=== PATIENT | male | born 2000 | race African-American/Black ===

== ENCOUNTER 2021-05-21 14:04 | Emergency (ER) | payer MEDICAID ==
[~2021-05-21] VITALS: Ht 175.3 cm; Wt 66.0 kg
[2021-05-21 15:19] LABS: BASOPHILS % 0.6 % (0.0-2.0); EOSINOPHILS % 0.5 % (0.0-5.0); HEMATOCRIT. 43.2 % (42.0-52.0); HEMOGLOBIN. 14.2 g/dL (14.0-18.0); LYMPHOCYTES % 14.6 % (20.0-50.0); MEAN CORPUSCULAR HEMOGLOBIN 29.9 pg (28.0-32.0); MEAN PLATELET VOLUME 7.6 fl (7.4-10.4); MONOCYTES % 7.2 % (2.0-8.0); NEUTROPHILS % 77.1 % (40.0-76.0); PLATELET 231 x1000/uL (130-400); RED BLOOD CELL COUNT 4.75 mill/uL (4.7-6.1); RED CELL DISTRIBUTION WIDTH 14.2 % (11.6-14.6)
[2021-05-21 15:26] LABS: CHLORIDE 108 mEq/L (98-107)
[2021-05-21 15:30] LABS: ETHANOL BLOOD < 10 mg/dL
[2021-05-21 17:29] LABS: CLARITY URINE CLEAR (CLEAR); COLOR URINE YELLOW (YELLOW); KETONES URINE NEGATIVE (NEGATIVE); LEUKOCYTE ESTERASE URINE NEGATIVE (NEGATIVE); NITRITE URINE NEGATIVE (NEGATIVE); OCCULT BLOOD URINE NEGATIVE (NEGATIVE); PH URINE 6.5 (4.5-8.0); PROTEIN URINE NEGATIVE (NEGATIVE); SPECIFIC GRAVITY URINE 1.013 (1.005-1.030); UROBILINOGEN URINE 0.2 E.U./dL (0.2-1.0)
[2021-05-21 17:57] LABS: *BENZODIAZEPINES SCREEN URINE NEGATIVE (NEGATIVE); METHADONE URINE SCREEN NEGATIVE (NEGATIVE); OPIATES URINE SCREEN NEGATIVE (NEGATIVE); PHENCYCLIDINE URINE SCREEN NEGATIVE (NEGATIVE)
[2021-05-21 17:58] LABS: *AMPHETAMINES SCREEN URINE NEGATIVE (NEGATIVE); *BARBITURATES SCREEN URINE NEGATIVE (NEGATIVE); *COCAINE SCREEN URINE NEGATIVE (NEGATIVE); CANNABINOID URINE SCREEN NEGATIVE (NEGATIVE)
[2021-05-22] MEDS: RISPERIDONE 1MG TABLET PO SCH ×2 (09:32→21:13)
[2021-05-23 05:02] VITALS: BP 103/61
== END 2021-05-23 05:05 ==
LOC: ER 14:04
DX: U07.1 COVID-19 (principal); R45.851 Suicidal ideations; F12.90 Cannabis use, unspecified, uncomplicated; F15.90 Other stimulant use, unspecified, uncomplicated; Z91.14 Patient's other noncompliance with medication regimen; Z91.51 Personal history of suicidal behavior; Z59.00 Homelessness unspecified
CPT/HCPCS: 36415; 80053; 80305; 80307; 80320; 80329; 81003; 85025; 99285; G0480

== ENCOUNTER 2021-06-25 03:31 | Emergency (ER) | payer MEDICAID ==
[~2021-06-25] VITALS: Ht 175.3 cm; Wt 73.0 kg
[2021-06-25 03:52] VITALS: BP 120/78
[2021-06-25 04:46] LABS: BASOPHILS % 0.5 % (0.0-2.0); EOSINOPHILS % 3.3 % (0.0-5.0); HEMATOCRIT. 42.6 % (42.0-52.0); HEMOGLOBIN. 14.8 g/dL (14.0-18.0); LYMPHOCYTES % 14.2 % (20.0-50.0); MEAN CORPUSCULAR HEMOGLOBIN 30.6 pg (28.0-32.0); MEAN CORPUSCULAR VOLUME 88.1 fL (80.0-94.0); MEAN PLATELET VOLUME 7.3 fl (7.4-10.4); MONOCYTES % 10.5 % (2.0-8.0); NEUTROPHILS % 71.5 % (40.0-76.0); PLATELET 264 x1000/uL (130-400); RED BLOOD CELL COUNT 4.83 mill/uL (4.7-6.1); RED CELL DISTRIBUTION WIDTH 13.4 % (11.6-14.6)
[2021-06-25 04:52] LABS: CLARITY URINE CLEAR (CLEAR); COLOR URINE YELLOW (YELLOW); KETONES URINE NEGATIVE (NEGATIVE); LEUKOCYTE ESTERASE URINE NEGATIVE (NEGATIVE); NITRITE URINE NEGATIVE (NEGATIVE); OCCULT BLOOD URINE NEGATIVE (NEGATIVE); PROTEIN URINE NEGATIVE (NEGATIVE); SPECIFIC GRAVITY URINE 1.013 (1.005-1.030)
[2021-06-25 05:02] LABS: CHLORIDE 106 mEq/L (98-107)
[2021-06-25 05:07] LABS: ETHANOL BLOOD < 10 mg/dL
[2021-06-25 05:14] LABS: *AMPHETAMINES SCREEN URINE NEGATIVE (NEGATIVE); *BARBITURATES SCREEN URINE NEGATIVE (NEGATIVE); *BENZODIAZEPINES SCREEN URINE NEGATIVE (NEGATIVE); *COCAINE SCREEN URINE NEGATIVE (NEGATIVE); METHADONE URINE SCREEN NEGATIVE (NEGATIVE); OPIATES URINE SCREEN NEGATIVE (NEGATIVE)
[2021-06-25 05:15] LABS: CANNABINOID URINE SCREEN NEGATIVE (NEGATIVE); PHENCYCLIDINE URINE SCREEN NEGATIVE (NEGATIVE)
== END 2021-06-25 13:26 | disposition left against medical advice (07) ==
LOC: ER 03:31
DX: F20.9 Schizophrenia, unspecified (principal); F31.9 Bipolar disorder, unspecified; F17.200 Nicotine dependence, unspecified, uncomplicated
CPT/HCPCS: 36415; 80053; 80305; 80307; 80320; 80329; 81003; 85025; 99284; G0480

== ENCOUNTER 2022-06-01 12:08 | Emergency (ER) | payer MEDICAID ==
[~2022-06-01] VITALS: Ht 172.7 cm; Wt 75.0 kg
[2022-06-01 12:27] VITALS: BP 122/78
== END 2022-06-01 13:06 | disposition left against medical advice (07) ==
LOC: ER 12:08
DX: Z53.21 Procedure and treatment not carried out due to patient leaving prior to being seen by health care provider (principal)

== ENCOUNTER 2022-06-06 14:50 | Emergency (ER) | payer MEDICAID ==
[~2022-06-06] VITALS: Ht 172.7 cm; Wt 73.0 kg
[2022-06-06 15:23] VITALS: BP 120/78
== END 2022-06-06 18:25 | disposition home or self-care (01) ==
LOC: ER 14:50
DX: R44.0 Auditory hallucinations (principal); Z04.6 Encounter for general psychiatric examination, requested by authority; F31.9 Bipolar disorder, unspecified; F17.290 Nicotine dependence, other tobacco product, uncomplicated
CPT/HCPCS: 99281; 99406

== ENCOUNTER 2022-06-13 10:08 | Emergency (ER) | payer MEDICAID ==
[~2022-06-13] VITALS: Ht 175.3 cm; Wt 59.0 kg
[2022-06-13 10:15] VITALS: BP 130/70
== END 2022-06-13 12:16 | disposition home or self-care (01) ==
LOC: ER 10:08
DX: H92.03 Otalgia, bilateral (principal); Z86.59 Personal history of other mental and behavioral disorders
CPT/HCPCS: 99281

== ENCOUNTER 2022-06-23 23:38 | Emergency (ER) | payer MEDICAID ==
[~2022-06-23] VITALS: Ht 185.4 cm; Wt 67.4 kg
[2022-06-24 00:50] VITALS: BP 119/71
== END 2022-06-24 04:26 | disposition home or self-care (01) ==
LOC: ER 23:38
DX: Z13.9 Encounter for screening, unspecified (principal)
CPT/HCPCS: 99281

== ENCOUNTER 2022-06-25 15:24 | Emergency (ER) | payer MEDICAID, OTHER ==
[~2022-06-25] VITALS: Ht 185.4 cm; Wt 65.0 kg
[2022-06-25 15:26] VITALS: BP 127/74
== END 2022-06-25 18:52 | disposition left against medical advice (07) ==
LOC: ER 15:24
DX: Z53.21 Procedure and treatment not carried out due to patient leaving prior to being seen by health care provider (principal)

== ENCOUNTER 2024-02-19 22:02 | Emergency (ER) | payer MEDICAID, OTHER ==
[~2024-02-19] VITALS: Ht 177.8 cm; Wt 64.0 kg
[2024-02-19 22:40] VITALS: O2SAT 100
[2024-02-20] MEDS ORDERED: RISP-29 MT (00:24)
[2024-02-20 01:13] LABS: BASOPHILS % 1.3 % (0.0-2.0); EOSINOPHILS % 1.3 % (0.0-5.0); HEMATOCRIT. 45.9 % (42.0-52.0); HEMOGLOBIN. 15.6 g/dL (14.0-18.0); LYMPHOCYTES % 23.4 % (20.0-50.0); MEAN CORPUSCULAR HEMOGLOBIN 31.9 pg (28.0-32.0); MEAN CORPUSCULAR HGB CONC 33.9 g/dL (31.0-37.0); MEAN PLATELET VOLUME 7.2 fl (7.4-10.4); MONOCYTES % 9.7 % (2.0-8.0); NEUTROPHILS % 64.3 % (40.0-76.0); PLATELET 270 x1000/uL (130-400); RED BLOOD CELL COUNT 4.88 mill/uL (4.7-6.1); RED CELL DISTRIBUTION WIDTH 14.5 % (11.6-14.6); WHITE BLOOD COUNT 4.7 x1000/uL (4.5-11.0)
[2024-02-20 01:19] LABS: CHLORIDE 108 mEq/L (98-107); POTASSIUM 3.9 mEq/L (3.5-5.1); SODIUM 140 mEq/L (136-145)
[2024-02-20 01:20] LABS: CARBON DIOXIDE 27 mEq/L (21-32)
[2024-02-20 01:21] LABS: CALCIUM 9.6 mg/dL (8.7-10.4)
[2024-02-20] MEDS: ZIPRASIDONE HCL 20MG CAPSULE PO STA (01:23)
[2024-02-20 01:25] LABS: GLUCOSE 79 mg/dL (70-105)
[2024-02-20 02:10] LABS: UREA NITROGEN BLOOD < 5 mg/dL (9-23)
[2024-02-20 02:11] LABS: ETHANOL BLOOD < 10 mg/dL (<10)
[2024-02-21] MEDS ORDERED: RISPERIDONE 1MG TABLET PO SCH (09:00)
[2024-02-21] MEDS: RISPERIDONE 0.5MG TABLET PO SCH (09:50)
[2024-02-21 10:56] LABS: CLARITY URINE CLEAR (CLEAR); COLOR URINE YELLOW (YELLOW); GLUCOSE URINE NEGATIVE (NEGATIVE); KETONES URINE 1+ (NEGATIVE); LEUKOCYTE ESTERASE URINE NEGATIVE (NEGATIVE); NITRITE URINE NEGATIVE (NEGATIVE); OCCULT BLOOD URINE NEGATIVE (NEGATIVE); PROTEIN URINE NEGATIVE (NEGATIVE); SPECIFIC GRAVITY URINE 1.015 (1.005-1.030)
[2024-02-21 11:09] LABS: *AMPHETAMINES SCREEN URINE NEGATIVE (NEGATIVE); *BARBITURATES SCREEN URINE NEGATIVE (NEGATIVE); *BENZODIAZEPINES SCREEN URINE NEGATIVE (NEGATIVE); *COCAINE SCREEN URINE NEGATIVE (NEGATIVE); CANNABINOID URINE SCREEN PRESUMPTIVE POSITIVE (NEGATIVE); ECSTASY MDMA SCREEN URINE NEGATIVE (NEGATIVE); METHADONE URINE SCREEN NEGATIVE (NEGATIVE); OPIATES URINE SCREEN NEGATIVE (NEGATIVE); PHENCYCLIDINE URINE SCREEN NEGATIVE (NEGATIVE)
[2024-02-21 15:24] VITALS: BP 116/67; PULSE 74; RESP 16; TEMP 36.83628; O2SAT 100
== END 2024-02-21 15:30 ==
LOC: ER 22:02
DX: R46.2 Strange and inexplicable behavior (principal); Z20.822 Contact with and (suspected) exposure to COVID-19
CPT/HCPCS: 36415; 80048; 80305; 80320; 81003; 85025; 87426; 99285; G0480

== ENCOUNTER 2024-12-12 13:53 | Emergency (ER) | payer MEDICARE, MEDICAID ==
[~2024-12-12] VITALS: Ht 177.8 cm; Wt 75.0 kg
[~2024-12-12 13:53] MED LIST: RISP-29 MT
[2024-12-12 14:00] VITALS: O2SAT 99
[2024-12-12] MEDS: RISPERIDONE 1MG TABLET PO STA (14:27)
[2024-12-12 15:03] LABS: BASOPHILS % 1.2 % (0.0-2.0); EOSINOPHILS % 4.3 % (0.0-5.0); HEMATOCRIT. 39.5 % (42.0-52.0); HEMOGLOBIN. 13.7 g/dL (14.0-18.0); LYMPHOCYTES % 21.8 % (20.0-50.0); MEAN CORPUSCULAR HGB CONC 34.6 g/dL (31.0-37.0); MEAN CORPUSCULAR VOLUME 92.5 fL (80.0-94.0); MONOCYTES % 8.3 % (2.0-8.0); NEUTROPHILS % 64.4 % (40.0-76.0); PLATELET 261 x1000/uL (130-400); RED BLOOD CELL COUNT 4.26 mill/uL (4.7-6.1); RED CELL DISTRIBUTION WIDTH 16.2 % (11.6-14.6); WHITE BLOOD COUNT 4.5 x1000/uL (4.5-11.0)
[2024-12-12 15:11] LABS: CARBON DIOXIDE 24 mEq/L (21-32); CHLORIDE 108 mEq/L (98-107); POTASSIUM 4.1 mEq/L (3.5-5.1); SODIUM 139 mEq/L (136-145)
[2024-12-12 15:12] LABS: CALCIUM 9.7 mg/dL (8.7-10.4)
[2024-12-12 15:16] LABS: CREATININE 1.1 mg/dL (0.6-1.3); GLUCOSE 99 mg/dL (70-105)
[2024-12-12 15:17] LABS: ETHANOL BLOOD < 10 mg/dL (<10); UREA NITROGEN BLOOD 9 mg/dL (9-23)
[2024-12-12 17:21] LABS: CLARITY URINE CLEAR (CLEAR); COLOR URINE YELLOW (YELLOW); GLUCOSE URINE NEGATIVE (NEGATIVE); KETONES URINE NEGATIVE (NEGATIVE); LEUKOCYTE ESTERASE URINE NEGATIVE (NEGATIVE); NITRITE URINE NEGATIVE (NEGATIVE); OCCULT BLOOD URINE NEGATIVE (NEGATIVE); PH URINE 6.5 (4.5-8.0); PROTEIN URINE NEGATIVE (NEGATIVE); SPECIFIC GRAVITY URINE 1.008 (1.005-1.030); UROBILINOGEN URINE 0.2 E.U./dL (0.2-1.0)
[2024-12-12 17:38] LABS: *AMPHETAMINES SCREEN URINE NEGATIVE (NEGATIVE); *BENZODIAZEPINES SCREEN URINE NEGATIVE (NEGATIVE)
[2024-12-12 17:39] LABS: *BARBITURATES SCREEN URINE NEGATIVE (NEGATIVE); *COCAINE SCREEN URINE NEGATIVE (NEGATIVE); CANNABINOID URINE SCREEN PRESUMPTIVE POSITIVE (NEGATIVE); ECSTASY MDMA SCREEN URINE NEGATIVE (NEGATIVE); METHADONE URINE SCREEN NEGATIVE (NEGATIVE); OPIATES URINE SCREEN NEGATIVE (NEGATIVE); PHENCYCLIDINE URINE SCREEN NEGATIVE (NEGATIVE)
[2024-12-13] MEDS: RISPERIDONE 1MG TABLET PO SCH (11:04)
[2024-12-13 13:48] VITALS: BP 110/55; PULSE 75; RESP 16; TEMP 36.8; O2SAT 98
[2024-12-13] MEDS ORDERED: TRAZODONE HCL 50MG TABLET PO SCH (21:00)
== END 2024-12-13 13:50 ==
LOC: ER 13:53
DX: F20.9 Schizophrenia, unspecified (principal); Z00.8 Encounter for other general examination; F10.90 Alcohol use, unspecified, uncomplicated; Z59.00 Homelessness unspecified; Z79.899 Other long term (current) drug therapy; Z91.148 Patient's other noncompliance with medication regimen for other reason; Z20.822 Contact with and (suspected) exposure to COVID-19; Y90.9 Presence of alcohol in blood, level not specified
CPT/HCPCS: 80305; 80048; 81003; 80307; 80329; 80320; 85025; 36415; 99285; 87426; Z7610; G0480

== ENCOUNTER 2025-03-20 11:48 | Emergency (ER) | payer MEDICARE, MEDICAID ==
[~2025-03-20] VITALS: Ht 177.8 cm; Wt 77.0 kg
[2025-03-20 12:19] VITALS: TEMP 36.8; O2SAT 100
[2025-03-20 15:27] VITALS: BP 134/72; PULSE 55; RESP 16; O2SAT 100
[2025-03-21] MEDS ORDERED: RISP-29 MT (03:53)
[2025-03-21] MEDS ORDERED: PERM60CR20 TP (19:15)
== END 2025-03-20 15:28 | disposition home or self-care (01) ==
LOC: ER 11:48
DX: Z00.00 Encounter for general adult medical examination without abnormal findings (principal); F20.9 Schizophrenia, unspecified; F12.90 Cannabis use, unspecified, uncomplicated; Z79.899 Other long term (current) drug therapy
CPT/HCPCS: 99282

== ENCOUNTER 2025-03-21 03:18 | Emergency (ER) | payer MEDICARE, MEDICAID ==
[~2025-03-21] VITALS: Ht 177.8 cm; Wt 68.0 kg
[2025-03-21 03:28] VITALS: PULSE 99; RESP 16; O2SAT 97
[2025-03-21 03:34] VITALS: BP 128/74; TEMP 36.9; O2SAT 100
[2025-03-21] MEDS ORDERED: RISP-29 MT (03:53)
[2025-03-21] MEDS ORDERED: RISPERIDONE 1MG TABLET PO SCH (04:00)
[2025-03-21] MEDS ORDERED: PERM60CR20 TP (19:15)
== END 2025-03-21 04:15 | disposition home or self-care (01) ==
LOC: ER 03:18
DX: F20.9 Schizophrenia, unspecified (principal); Z76.0 Encounter for issue of repeat prescription; Z79.899 Other long term (current) drug therapy
CPT/HCPCS: 99281

== ENCOUNTER 2025-03-21 18:43 | Emergency (ER) | payer MEDICARE, MEDICAID ==
[~2025-03-21] VITALS: Ht 177.8 cm; Wt 75.0 kg
[2025-03-21 18:52] VITALS: BP 119/74; RESP 17; TEMP 36.9; O2SAT 99
[2025-03-21 18:54] VITALS: PULSE 102; O2SAT 97
[2025-03-21] MEDS ORDERED: PERM60CR20 TP (19:15)
== END 2025-03-21 19:10 | disposition home or self-care (01) ==
LOC: ER 18:43
DX: B85.0 Pediculosis due to Pediculus humanus capitis (principal); F12.90 Cannabis use, unspecified, uncomplicated; Z79.899 Other long term (current) drug therapy
CPT/HCPCS: 99282; 99283

== ENCOUNTER 2025-04-01 19:18 | Emergency (ER) | payer MEDICARE, MEDICAID ==
[~2025-04-01] VITALS: Ht 177.8 cm; Wt 73.0 kg
[~2025-04-01 19:18] MED LIST changes: +PERM60CR20 TP
[2025-04-01 19:23] VITALS: O2SAT 100
[2025-04-01] MEDS ORDERED: PERM60CR20 TP (20:35)
[2025-04-01] MEDS ORDERED: PIPE118S24 TP (20:35)
[2025-04-01 21:01] VITALS: BP 120/78; PULSE 64; RESP 18; TEMP 36.7; O2SAT 100
== END 2025-04-01 21:18 | disposition home or self-care (01) ==
LOC: ER 19:18
DX: B85.0 Pediculosis due to Pediculus humanus capitis (principal); B86 Scabies; F12.90 Cannabis use, unspecified, uncomplicated; Z79.899 Other long term (current) drug therapy
CPT/HCPCS: 99283

== ENCOUNTER 2025-05-05 00:07 | Emergency (ER) | payer MEDICARE, MEDICAID ==
[~2025-05-05] VITALS: Ht 177.8 cm; Wt 73.2 kg
[~2025-05-05 00:07] MED LIST changes: +PIPE118S24 TP
[2025-05-05 00:17] VITALS: O2SAT 100
[2025-05-05] MEDS ORDERED: RISP3TAB76 MT (00:34)
[2025-05-05 00:59] VITALS: BP 166/87; PULSE 88; RESP 14; TEMP 36.8; O2SAT 100
== END 2025-05-05 01:00 | disposition home or self-care (01) ==
LOC: ER 00:07
DX: F31.9 Bipolar disorder, unspecified (principal); F20.9 Schizophrenia, unspecified; Z76.0 Encounter for issue of repeat prescription; Z79.899 Other long term (current) drug therapy
CPT/HCPCS: 99283